=== PATIENT | male | born 1970 | race Caucasian/White ===

== ENCOUNTER 2023-06-20 09:42 | Emergency (ER) | payer OTHER ==
[2023-06-20 09:48] VITALS: RESP 16; BMI 26.4
[2023-06-20 11:02] LABS: INR 1.18 (0.83-1.09); PROTHROMBIN TIME (PATIENT) 13.7 SEC (9.7-13.0)
[2023-06-20 11:05] LABS: ACTIVATED PTT 38.3 SECONDS (25.2-36.5)
[2023-06-20 11:13] LABS: HEMOGLOBIN 16.2 G/dL (11.7-16.9); MCH 29.3 pg (25.7-33.7); MCHC 33.6 g/dl (32.0-35.9); MEAN CELL VOLUME 86.9 fl (80-96); MEAN PLT VOLUME 9.6 fl (7.5-11.1); PLATELET COUNT 148.1 10^3/uL (134-434); RBC 5.52 10^6/uL (4.00-5.60); WHITE BLOOD COUNT 6.5 10^3/uL (4.0-10.8)
[2023-06-20 11:22] LABS: PLATELET ESTIMATE ADEQUATE
[2023-06-20 11:37] LABS: ALBUMIN 4.1 g/dl (3.4-5.0); BLOOD UREA NITROGEN 20.9 mg/dl (7-18); CALCIUM 9.1 mg/dl (8.5-10.1); CREATININE 1.1 mg/dl (0.6-1.3); POTASSIUM 3.4 mmol/L (3.5-5.1); SGOT/AST 41.4 U/L (15-37); SGPT/ALT 38.5 U/L (7-52); TOT PROT 6.7 g/dl (6.4-8.2)
[2023-06-20 14:45] LABS: BILIRUBIN,TOTAL 0.4 mg/dL (0.2-1)
[2023-06-20 15:44] LABS: CSF APPEARANCE CLEAR (CLEAR); CSF COLOR COLORLESS (COLORLESS); CSF WBC 1 mm3 (0-5)
[2023-06-20 15:54] LABS: BF GLUCOSE (CSF ONLY) 59 mg/dL (40-70)
[2023-06-20 18:43] VITALS: BP 160/100; PULSE 72; TEMP 99.8
[2023-06-26 09:09] LABS: MUMPS AB IGG CSF < 5.0 AU/mL (<=10.9)
== END 2023-06-20 19:37 | disposition short-term general hospital (02) ==
LOC: FER 09:42
PROC: 009U3ZX Drainage of Spinal Canal, Percutaneous Approach, Diagnostic (ICD-10-PCS; principal; 2023-06-20)
DX: R26.2 Difficulty in walking, not elsewhere classified (principal); M54.9 Dorsalgia, unspecified; M25.559 Pain in unspecified hip; M79.604 Pain in right leg; M79.605 Pain in left leg; G61.0 Guillain-Barre syndrome; R20.2 Paresthesia of skin; X50.0XXA Overexertion from strenuous movement or load, initial encounter
CPT/HCPCS: 36415; 70450-TC; 72131-TC; 80053; 82945; 84157; 84484; 85027; 85610; 85730; 86694; 86735; 86765; 86787; 86788; 86789; 87070; 87205; 93005; 99285-25